=== PATIENT | male | born 1995 | race African-American/Black ===

== ENCOUNTER 2016-11-22 11:54 | Emergency (ER) | payer SELFPAY ==
[~2016-11-22] VITALS: Ht 182.9 cm; Wt 113.4 kg
[~2016-11-22 11:54] MED LIST: BENZ200C39 PO
[2016-11-22 11:58] VITALS: BP 147/84
[2016-11-22 12:46] LABS: NEGATIVE OBC STREP NEG; POSITIVE OBC STREP POS
[2016-11-22 13:06] LABS: OBC FLU VALID
--- NOTE | 2016-11-22 13:08 | PHYS DOC ---
Past Medical History Past Medical History: No Pertinent History Past Surgical History: No Surgical History Additional Information: occasional smoker Alcohol Use: None Drug Use: Marijuana Adult General Chief Complaint Chief Complaint: COUGH HPI HPI Patient is a 21 year old male who presents with flu-like symptoms for 1 week. It started with a sore throat and then fever up to 103.7F. He complains of diffuse body aches and headache. He only has the headache with fever. He has had nausea with 4 episodes of vomiting in the last 3 days. He denies cough, nasal congestion, ear pain, abdominal pain, or diarrhea. He did not get a flu shot this season. He denies any known sick contacts. He does not have a PCP. Review of Systems Review of Systems Constitutional: Reports fever and chills. Eyes: Denies change in visual acuity, redness, or eye pain. [] HENT: Denies ear pain, nasal congestion. Reports sore throat. Respiratory: Denies cough or shortness of breath. [] Cardiovascular: Denies chest pain, palpitations or edema. [] GI: Denies abdominal pain, bloody stools or diarrhea. Reports nausea with occasional vomiting. : Denies dysuria, hematuria or urinary frequency. [] Musculoskeletal: Denies back pain or joint pain. Reports body aches. Integument: Denies rash or skin lesions. [] Neurologic: Denies focal weakness or sensory changes. Reports headache with fever. Endocrine: Denies polyuria or polydipsia. [] Psych: Denies anxiety or depression. [] All systems reviewed and negative unless otherwise stated in the HPI. Allergies Allergies Allergies Coded Allergies Type Severity Reaction Last Updated Verified No Known Drug Allergies 03/23/16 No Physical Exam Physical Exam Constitutional: Well developed, well nourished, no acute distress, non-toxic appearance. [] HENT: Normocephalic, atraumatic, bilateral external ears normal, oropharynx moist, no oral exudates, nose normal. Bilateral TMs without erythema or bulging. There is posterior pharyngeal erythema with mild tonsillar edema without exudates. There is no peritonsillar abscess or uvular deviation. Bilateral nasal turbinates are swollen and erythematous. Eyes: PERRLA, EOMI, conjunctiva normal, no discharge. [] Neck: Normal range of motion, no tenderness, supple, no stridor. [] Cardiovascular: Heart rate regular rhythm, no murmur [] Lungs & Thorax: Bilateral breath sounds clear to auscultation without wheezes, rales, rhonchi. Abdomen: Bowel sounds normal, soft, no tenderness, no masses, no pulsatile masses. [] Skin: Warm, dry, no erythema, no rash. [] Back: No tenderness, no CVA tenderness. [] Neurologic: Alert and oriented X 3, normal motor function, normal sensory function, no focal deficits noted. [] Psychologic: Affect normal, judgement normal, mood normal. [] Current Patient Data Vital Signs Vital Signs Date Time Temp Pulse Resp B/P Pulse Ox O2 Delivery O2 Flow Rate FiO2 11/22/16 11:58 98.3 95 16 96 Room Air 98.3 Lab Values Laboratory Tests Test 11/22/16 12:05 11/22/16 12:20 Influenza Type A Antigen Negative (NEGATIVE) Influenza Type B Antigen Negative (NEGATIVE) Group A Streptococcus Rapid Negative (NEGATIVE) EKG EKG [] Radiology/Procedures Radiology/Procedures [] Course & Med Decision Making Course & Med Decision Making Pertinent Labs and Imaging studies reviewed. (See chart for details) [] Dragon Disclaimer Dragon Disclaimer This electronic medical record was generated, in whole or in part, using a voice recognition dictation system. Departure Departure Impression: Primary Impression: Pharyngitis Disposition: 01 HOME, SELF-CARE Condition: STABLE Referrals: NO PCP (PCP) Patient Instructions: Viral and Bacterial Pharyngitis, [id number] Additional Instructions: Your strep and flu tests were negative today. Based on your symptoms and exam, it appears that you have strep throat. Please complete all of the prescribed antibiotics, even if you are feeling better. Please take Tylenol and ibuprofen for fever or pain. Use according to package instructions. Return to the emergency department if you have high fever not responding to medication, difficulty breathing or swallowing, or other new or concerning symptoms. Scripts Amoxicillin 500 Mg Tablet1 Tab PO TID #30 TAB Prov:BABITA OLIVER 11/22/16 Problem Qualifiers Primary Impression: Pharyngitis Pharyngitis/tonsillitis etiology: unspecified etiology Qualified Code: J02.9 - Acute pharyngitis, unspecified BABITA OLIVER Nov 22, 2016 13:08
[2016-11-22] MEDS ORDERED: AMOX500T PO (13:20)
== END 2016-11-22 13:26 | disposition home or self-care (01) ==
LOC: ER 11:54
DX: J02.9 Acute pharyngitis, unspecified (principal); F12.10 Cannabis abuse, uncomplicated; F17.200 Nicotine dependence, unspecified, uncomplicated
CPT/HCPCS: 87070; 87804; 87880; 99284